=== PATIENT | male | born 1995 | race Caucasian/White ===

== ENCOUNTER 2017-09-24 16:13 | Emergency (ER) | payer MEDICAID, OTHER ==
[~2017-09-24] VITALS: Ht 157.5 cm; Wt 59.0 kg
[2017-09-24 16:38] VITALS: BP 109/73
== END 2017-09-24 23:30 | disposition left against medical advice (07) ==
LOC: ER 20:10
DX: J02.9 Acute pharyngitis, unspecified (principal); Z53.21 Procedure and treatment not carried out due to patient leaving prior to being seen by health care provider

== ENCOUNTER 2019-04-18 08:08 | Emergency (ER) | payer MEDICAID ==
[~2019-04-18] VITALS: Ht 160 cm; Wt 63.0 kg
[2019-04-18] MEDS ORDERED: DIAZEPAM 5 MG TABLET PO ONE (08:30)
[2019-04-18 11:15] VITALS: BP 135/74
== END 2019-04-18 11:30 | disposition home or self-care (01) ==
LOC: ER 08:08
DX: F15.10 Other stimulant abuse, uncomplicated (principal)
CPT/HCPCS: 71046; 93005; 99283; Z7610